=== PATIENT | male | born 1980 | race Caucasian/White ===

== ENCOUNTER 2019-11-18 13:37 | Outpatient (CLI) | payer OTHER, MEDICAID, SELFPAY ==
--- NOTE | ~2019-11-18 | MR_ITS ---
EXAMINATION: MR lumbar spine wo/w con DATE: 11/18/2019 14:57 INDICATION: Lumbar degenerative disc disease and radiculopathy. Postlaminectomy syndrome. TECHNIQUE: Magnetic resonance imaging (MRI) of the lumbar spine was performed without and with 20 mL MultiHance intravenous contrast. Sequences included sagittal T2-weighted FSE, sagittal T2-weighted FS FSE, and sagittal and axial T1-weighted FSE. Postcontrast sequences included axial T2-weighted FSE a nd axial and sagittal T1-weighted FS FSE. COMPARISON: Lumbar spine MRI 01/19/2013 FINDINGS: There is 3 mm retrolisthesis of L1 on L2. There are changes of anterior and posterior fusio n procedures from L3 to S1 with pedicle screws, discectomies, and interbody devices. There are Schmor l's nodes from T11-T12 through L2-L3. There is mildly decreased disc height at L1-L2 and L2-L3. The d istal spinal cord signal intensity is normal. The conus medullaris is at T12-L1. The following disc l evels are specifically discussed: L1-L2: The disc is bulging. There is no facet joint osteoarthritis. There is moderate and mild left n eural foraminal stenosis. There is mild central canal stenosis. L2-L3: The disc is bulging. There is severe bilateral facet joint osteoarthritis. There is moderate b ilateral neural foraminal stenosis. There is moderate central canal stenosis. L3-L4: There is mild right and moderate left facet joint hypertrophy. There is mild right and moderat e left neural foraminal stenosis. There is no central canal stenosis. L4-L5: There is mild bilateral facet joint hypertrophy. There is moderate bilateral neural foraminal stenosis. There is no central canal stenosis. L5-S1: There is mild bilateral facet joint hypertrophy. There is mild bilateral neural foraminal sten osis. There is no central canal stenosis. IMPRESSION: 1. Moderate lumbar spondylosis, worsened from 01/19/2013. 2. Anterior and posterior fusion procedures from L3 to S1. Reviewed, dictated and finalized at location A. [facility]
[2019-11-18 14:25] LABS: Blood Urea Nitrogen 15 mg/dL (8-26); Estimated Glomerular Filt Rate > 60
== END 2019-11-18 13:38 | disposition home or self-care (01) ==
DX: M47.26 Other spondylosis with radiculopathy, lumbar region (principal); M51.36 Other intervertebral disc degeneration, lumbar region; M96.1 Postlaminectomy syndrome, not elsewhere classified; Z98.1 Arthrodesis status
CPT/HCPCS: 72158; A9577

== ENCOUNTER 2020-09-15 14:13 | Outpatient (CLI) | payer OTHER, SELFPAY ==
[2020-09-15 14:34] LABS: Hematocrit 46.6 % (42.0-52.0); Hemoglobin 15.6 g/dL (14.0-18.0); Mean Corpuscular HGB Conc 33.5 g/dl (32-36); Mean Corpuscular Hemoglobin 31.8 pg (26-34); Mean Corpuscular Volume 95.1 fl (80-100); Mean Platelet Volume 9.3 fl (7.4-10.4); Platelet Count Result 262 k/mm3 (150-375); Red Cell Distribution Width 11.7 % (11.5-14.5); White Blood Count 8.1 K/mm3 (4.5-10.0)
[2020-09-15 14:47] LABS: Alanine Aminotransferase 34 U/L (4-50); Albumin Level 4.1 g/dL (3.5-5.1); Alkaline Phosphatase 61 U/L (38-126); Anion Gap 4 mmol/L (8-16); Aspartate Amino Transferase 29 U/L (17-59); Bilirubin,Total 0.4 mg/dL (0.2-1.3); Blood Urea Nitrogen 16 mg/dL (9-20); Calcium 9.4 mg/dL (8.4-10.2); Carbon Dioxide 30 mmol/L (22-30); Chloride 106 mmol/L (98-107); Estimated Glomerular Filt Rate > 60; Glucose 107 mg/dL (75-110); Phosphorus 3.6 mg/dL (2.5-4.5); Potassium 4.7 mmol/L (3.4-5.0); Sodium 140 mmol/L (137-145)
[2020-09-15 15:40] LABS: Free T4 Free Thyroxine 0.94 ng/mL (0.78-2.19)
[2020-09-15 15:53] LABS: Folic Acid 17.8 ng/mL (2.76->20)
[2020-09-17 19:37] LABS: Amphetamines POSITIVE; Barbiturates negative; Benzodiazepines negative; Cocaine Metabolites negative; Marijuana Metabolites negative; PCP negative
== END 2020-09-15 14:14 | disposition home or self-care (01) ==
PROVIDERS: PCP Emergency Medicine; Visit Provider Emergency Medicine
DX: F11.20 Opioid dependence, uncomplicated (principal); G47.30 Sleep apnea, unspecified; R41.840 Attention and concentration deficit; R63.4 Abnormal weight loss
CPT/HCPCS: 36415; 80069; 80076; 80307; 82607; 82746; 84439; 84443; 85027

== ENCOUNTER 2023-05-20 18:23 | Emergency (ER) | payer OTHER, SELFPAY ==
[2023-05-20 18:31] VITALS: BP 153/94; PULSE 78; RESP 16; TEMP 37.7; O2SAT 99
--- NOTE | 2023-05-20 18:31 | ED.GENADULT ---
HPI - General Adult General Chief complaint: Dental/Oral Stated complaint: Dental Pain Time Seen by Provider: 05/20/23 18:31 Source: patient, RN notes reviewed and old records reviewed Mode of arrival: ambulatory Limitations: no limitations History of Present Illness HPI narrative: 42-year-old male presents to the [facility] with complaints of right upper dental pain. States that he has recently broke 2 teeth in the right upper jaw. Has been calling the [facility] for the past week and unable to get an appointment. Related Data Home Medications Medication Instructions Recorded Confirmed dextroamphetamine-amphetamine 20 05/20/23 mg tablet hydrocodone 10 mg-acetaminophen tablet 05/20/23 325 mg tablet Allergies Allergy/AdvReac Type Severity Reaction Status Date / Time ciprofloxacin Allergy Severe Rash Verified 05/20/23 18:32 levofloxacin Allergy Severe Rash Verified 05/20/23 18:32 Penicillins Allergy Unknown Rash Verified 05/20/23 18:32 Review of Systems Review of Systems: All systems reviewed & are unremarkable except as noted in HPI and below Constitutional: Constitutional: Reports no additional constitutional complaints Eyes: Eyes: Reports no additional eye complaints ENT: Reports as per HPI and Reports dental pain Cardiovascular: Cardiovascular: Reports no additional cardiovascular complaints, Denies chest pain and Denies dyspnea Respiratory: Respiratory: Reports no additional respiratory complaints, Denies chest congestion, Denies cough and Denies dyspnea Gastrointestinal: Gastrointestinal: Reports no additional gastrointestinal complaints, Denies abdominal pain, Denies nausea and Denies vomiting Musculoskeletal: Musculoskeletal: Reports no additional musculoskeletal complaints Integumentary/Breasts: Skin/Breast: Reports system reviewed and no additional complaints, except as docu Neurologic: Reports system reviewed and no additional complaints, except as documented Psychiatric: Psychiatric: Reports no additional psychiatric complaints Allergic/Immunologic: Allergic/Immunologic: Reports no additional allergic/immunologic complaints PMFSH Comments At the time of my signature, I reviewed and agree with the nursing past medical, surgical, social, and family history. There is no relevant family history pertinent to the patient complaint. Exam Const: General: cooperative, healthy appearing, comfortable, no acute distress, well developed, alert and well nourished Nutritional Appearance: well nourished Orientation/consciousness: patient oriented x3 Limitations: no limitations HENMT: Head: normal to inspection Ears: hearing grossly normal bilaterally and external ears normal Face/Nose/Sinus: Normal external nose present, Normal nares present, Normal nasal mucous membranes and turbinates present and normal facial exam Face and sinus: normal facial exam Mouth: Yes Normal oral and palatal mucosa present, Yes lip normal and Yes moist mucous membranes Teeth and gingiva: abnormal tooth and associated gingiva and poor dentition Throat: posterior oropharynx normal and uvula midline Eyes: General: appearance normal, both eyes and all related structures Alignment and Position: alignment normal Periorbital: periorbital findings normal Pupils: Equal, round and reactive pupils present EOM: EOMs intact bilaterally Neck: Neck: normal visual inspection, full ROM, no lymphadenopathy and no meningeal signs Chest: Chest palpation & inspection: normal inspection of the chest Resp: Effort & Inspection: normal respiratory effort and able to speak in complete sentences Cardio: Rate: regular rate Rhythm: regular rhythm Back/Spine/Pelvis: Cervical Spine: cervical ROM normal Skin: General skin exam: normal color and no rashes or lesions noted Lesions: no lesions Rashes: no rashes Wounds: no wounds Neuro: General: patient oriented x3, gait normal, tone normal, moves all extremities and no mening
[2023-05-20 18:32] VITALS: BP 153/94; PULSE 78; RESP 16; TEMP 37.7; O2SAT 99
== END 2023-05-20 18:47 | disposition home or self-care (01) ==
PROVIDERS: Emergency Provider Nurse Practitioner; PCP Emergency Medicine
DX: K04.7 Periapical abscess without sinus (principal); K02.9 Dental caries, unspecified
CPT/HCPCS: 99213; G0463